=== PATIENT | male | born 1965 | race Caucasian/White ===

== ENCOUNTER → 2025-05-12 | Day surgery (SDC) | payer OTHER ==
[~2025-05-12] MED LIST: ACTOS15 MG PO; FENTANYL CITRATE/PF 100MCG/2 ML INJ ONE; GABAPENTIN600 MG PO; GLIMEPIRIDE2 MG PO; LIDOCAINE HCL 2% LOCAL INJ 5 ML SDV VIAL INJ ONE; LISINOPRIL5 MG PO; MIDAZOLAM HCL 2 MG/2 ML VIAL ONE; MULTI-VITAMIN1 EACH PO; ONDANSETRON HCL INJ 2MG/ML 2ML 2 MG/ML VIAL ONE; PROPOFOL IV EMULSION 50 ML IV ONE; SYNJARDY XR 121 EACH PO
[2025-05-12] MEDS: LACTATED RINGER'S 1,000 ML ONE (08:38)
[2025-05-12 10:48] VITALS: TEMP 97.6
[2025-05-12 11:20] VITALS: BP 132/88; PULSE 84; RESP 16; O2SAT 97
== END | disposition home or self-care (01) ==
LOC: OR 08:07 → EDSEX 10:00
PROVIDERS: ATTEND Internal Medicine Gastroenterology
DX: Z12.11 Encounter for screening for malignant neoplasm of colon (principal); I49.9 Cardiac arrhythmia, unspecified; E11.9 Type 2 diabetes mellitus without complications; I10 Essential (primary) hypertension; G62.9 Polyneuropathy, unspecified; M06.9 Rheumatoid arthritis, unspecified; M19.90 Unspecified osteoarthritis, unspecified site; F17.210 Nicotine dependence, cigarettes, uncomplicated; Z01.810 Encounter for preprocedural cardiovascular examination; Z79.84 Long term (current) use of oral hypoglycemic drugs; Z79.899 Other long term (current) drug therapy; Z68.31 Body mass index [BMI] 31.0-31.9, adult
CPT/HCPCS: 36415; 45378; 82948; 93005; J2003; J2250; J2405; J2704; J3010; J7121